=== PATIENT | male | born 1985 | race Asian ===

== ENCOUNTER 2019-02-08 03:11 | Emergency (ER) | payer SELFPAY ==
[~2019-02-08] VITALS: Ht 177.8 cm; Wt 81.6 kg
[2019-02-08 03:15] VITALS: BP 113/79
--- NOTE | 2019-02-08 03:15 | NUR ---
33 Y/O MALE C/O EPIGASTRIC FOR 2-3 HOURS. PER PATIENT, "THE PAIN CAME OUT OF NOWHERE". PAIN IS AM 8/10 "TWISTING" PAIN. FACIAL GRIMACING NOTED AND GUARDING. GI: ABDOMEN IS FLAT; BOWEL SOUNDS: HYPERACTIVE HEARD ON ALL FOUR QUADRANTS. PAIN UPON PALPATING THE MID EPIGASTRIC REGION IS NOTED. ERMD MADE AWARE OF STATUS. SIDE [id number]. FRIEND AT BEDSIDE. VSS. WILL CONTINUE TO MONITOR. PMH:NONE RX:NONE NKDA
--- NOTE | 2019-02-08 03:15 | NUR ---
TO BED # 03 AMBULATORY
[2019-02-08] MEDS ORDERED: KETOROLAC 30 MG/ML VIAL IM ONE (03:45)
[2019-02-08] MEDS ORDERED: DICYCLOMINE HCL LIQUID 20 MG, ALUMINUM HYD/MAG/SIMETHICONE 30 ML, LIDOCAINE VISCOUS 2% ... PO ONE ×3 (03:45)
[2019-02-08 04:16] LABS: ANION GAP 11.7 (8-16); CARBON DIOXIDE 31.2 mmol/L (21-32); CREATININE 1.1 mg/dL (0.7-1.3); POTASSIUM 3.9 mmol/L (3.5-5.1)
[2019-02-08 04:31] LABS: ALBUMIN 3.9 g/dL (3.4-5.0); TOTAL BILIRUBIN 0.5 mg/dL (0.0-1.0)
[2019-02-08 05:00] VITALS: BP 113/79
--- NOTE | 2019-02-08 05:00 | NUR ---
Patient discharged with v/s stable. Written and verbal after care instructions given and explained. Patient alert, oriented and verbalized understanding of instructions. Ambulatory with steady gait. All questions addressed prior to discharge. ID band removed. Patient advised to follow up with PMD. Rx of MYLANTA given. Patient educated on indication of medication including possible reaction and side effects. Opportunity to ask questions provided and answered.
== END 2019-02-08 05:00 | disposition home or self-care (01) ==
LOC: MED 03:11
DX: R10.13 Epigastric pain (principal); F17.290 Nicotine dependence, other tobacco product, uncomplicated
CPT/HCPCS: 36415; 80053; 83690; 96372; 99283; J1885